=== PATIENT | male | born 1950 | race Two or more races ===

== ENCOUNTER 2022-06-12 19:37 | Inpatient (IN) | payer MEDICARE ==
[~2022-06-12] VITALS: Ht 165.1 cm; Wt 72.6 kg
--- NOTE | 2022-06-12 19:54 | NUR ---
[id number] FOR NO URINE OUTPUT VIA SUPRAPUBIC ALTMAN, LAST CHANGED 10 DAYS AGO. NO ALTMAN NOTED UPON TRIAGE. PT IS ALERT BUT CONFUSED, HX DEMENTIA. RR EVEN AND NONLABORED. CONNECTED TO MONITOR.
[2022-06-12 20:25] LABS: BASOPHILS % (AUTO) 0.7 % (0.0-2.0); EOSINOPHILS % (AUTO) 2.4 % (0.0-6.0); HEMATOCRIT 42 % (39-51); HEMOGLOBIN 13.7 g/dL (13.5-17.5); LYMPHOCYTES # (AUTO) 2.5 K/uL (0.8-4.8); MEAN CORPUSCULAR HGB CONC 33 g/dl (31.0-36.0); MEAN CORPUSCULAR VOLUME 92 fL (80-96); MONOCYTES # (AUTO) 0.5 K/uL (0.1-1.30); MONOCYTES % (AUTO) 7.5 % (2.0-12.0); NEUTROPHILS # (AUTO) 3.8 K/uL (1.8-8.9); NEUTROPHILS % (AUTO) 53.4 % (43.0-81.0); PLATELET COUNT (AUTO) 179 K/uL (150-450); RED BLOOD CELL COUNT(AUTO) 4.59 MIL/uL (4.5-6.0); WHITE BLOOD COUNT (AUTO) 7.1 K/uL (4.3-11.0)
[2022-06-12 20:41] LABS: CALCIUM, SERUM 8.5 mg/dL (8.5-10.1); CREATININE 2.9 mg/dL (0.6-1.3); POTASSIUM 3.6 mmol/L (3.5-5.1)
--- NOTE | 2022-06-12 21:00 | NUR ---
PATIENT ABLE TO URINATE ABOUT 10 ML, COLLECTED AND SENT TO LAB
--- NOTE | 2022-06-12 21:12 | NUR ---
DR STEVENS AT BEDSIDE FOR POSSIBLE CATH REINSERTION, BLADDER SCAN DONE REVEALED >300 ML.
--- NOTE | 2022-06-12 21:36 | NUR ---
IV LINE ESTABLISHED AT L HAND 22G
[2022-06-12 21:51] LABS: BILIRUBIN,URINE NEGATIVE (NEGATIVE); COLOR,URINE YELLOW (YELLOW); LEUKOCYTE ESTERASE ,URINE 1+ (NEGATIVE); NITRITE, URINE NEGATIVE (NEGATIVE); PROTEIN,URINE 1+ mg/dl (NEGATIVE); UGLUCOSE NEGATIVE (NEGATIVE); UROBILINOGEN,URINE 0.2 EU/dL (0.2)
[2022-06-12 21:58] LABS: RBC,URINE 81-100 /HPF (0-2)
[2022-06-12 21:59] LABS: BACTERIA,URINE 1+ /HPF (None Seen); SQUAMOUS EPITHELIAL CELL,UR 0-2 /HPF (None Seen)
[2022-06-12] MEDS ORDERED: CEFTRIAXONE 1 G in IV D5W 50 ML IV ONE (23:30)
[2022-06-12] MEDS ORDERED: Z GUARD REMEDY 4 OZ OINT TP PRN (23:30)
[2022-06-12] MEDS ORDERED: MAG HYDROX/AL HYDROX/SIMETH 30 ML UDC PO PRN (23:30)
[2022-06-12] MEDS ORDERED: HYDROCODONE/APAP 5/325MG TABLET PO PRN (23:30)
[2022-06-12] MEDS ORDERED: DEXTROSE 50%-WATER 50 ML DISP.SYRIN IV PRN (23:30)
[2022-06-12] MEDS ORDERED: MORPHINE SULFATE INJ 2 MG/ML DISP.SYRIN IV PRN (23:30)
[2022-06-12] MEDS ORDERED: MAGNESIUM HYDROXIDE 30 ML UDC PO PRN (23:30)
[2022-06-12] MEDS ORDERED: ONDANSETRON HCL/PF 4 MG/2 ML VIAL IVP PRN (23:30)
[2022-06-12] MEDS ORDERED: ZOLPIDEM TARTRATE 5 MG TABLET PO PRN (23:30)
[2022-06-12] MEDS ORDERED: IV NS 0.9% 1,000 ML IV ONE (23:30)
[2022-06-12] MEDS ORDERED: ACETAMINOPHEN 325 MG TABLET PO PRN (23:30)
[2022-06-13] MEDS ORDERED: CEFTRIAXONE 1 G VIAL ONE (00:38)
--- NOTE | 2022-06-13 02:25 | NUR ---
PT GOING TO 307-1
--- NOTE | 2022-06-13 02:35 | NUR ---
REPORT GIVEN TO SOUMYA HDZ. PT WILL BE TRANSFERRED TO [address] [place] [address].
--- NOTE | 2022-06-13 03:55 | NUR ---
PT SENT TO ROOM 307#1 IN STABLE CONDITION.
[2022-06-13 04:00] VITALS: BP 99/53
[2022-06-13 05:02] VITALS: BP 139/91
--- NOTE | 2022-06-13 05:10 | NUR ---
MS PLUMBER GASFITTER NOTE RECEIVED REPORT FROM TICKET SALES SUPERVISOR YUKO AND PATIENT WAS BROUGHT TO THE UNIT AT AROUND 0400, IN STABLE CONDITION. PER REPORT, PATIENT WAS ADMITTED D/T NO URINE OUTPUT IN SUPRAPUBIC CATHETER AND WAS FOUND OUT THAT IT WAS ACCIDENTALLY PULLED OUT. PATIENT WAS ALSO NOTED WITH UTI AND STARTED ON IV ATB IN ER. PATIENT WAS ACCOMPANIED BY 2 ER STAFFS AND DIRECTED TO RM. 307-1. ORIENTED TO NEW ENVIRONMENT AND EXPLAINED ADMISSION PROCESS WHICH INCLUDES SKIN ASSESSMENT WHICH THE PATIENT AGREES TO PARTICIPATE. SKIN IS INTACT AND PATIENT IS AMBULATORY WITH SUPERVISION. VITALS TAKEN AND FOLLOWS: BP- 139/91, P- 92, 02 SAT ON RA- 97%, R- 18, T-98.7. WITH IV ACCESS ON L HAND 22G AND STARTED WITH NS AT 75ML/HR ORDERED. SAFETY MEASURES IN PLACE. KEPT BED IN LOCKED AND IN LOW POSITION. SIDE RAILS UP X2. ADVISED TO USE THE CALL LIGHT WHEN IN NEED OF ASSISTANCE.
--- NOTE | 2022-06-13 06:30 | NUR ---
MS RN CLOSING NOTE PATIENT IN BED, WITH HOB ELEVATED, ASLEEP BUT EASY TO AROUSE AND RESPONSIVE. ALERT AND ORIENTED X3. ABLE TO COMMUNICATE NEEDS WITH THE STAFFS. AFEBRILE AND NOT IN ANY FORM OF ACUTE DISTRESS. BREATHING EVEN AND NON LABORED. LUNG SOUND CLEAR ON AUSCULTATION. NO C/O PAIN OR DISCOMFORT THROUGHOUT THE SHIFT. WITH IV ACCESS ON L HAND 22G RUNNING WITH NS AT 75ML/HR. SAFETY MEASURES IN PLACE. KEPT BED IN LOCKED AND IN LOW POSITION. SIDE RAILS UP X2. ADVISED TO USE THE CALL LIGHT WHEN IN NEED OF ASSISTANCE. ALL NURSING NEEDS ATTENDED. ENDORSED TO INCOMING SHIFT FOR CONTINUITY OF CARE.
[2022-06-13] MEDS: BLOOD SUGAR DIAGNOSTIC 1 EACH STRIP IN SCH ×4 (06:36→22:30)
[2022-06-13 07:13] LABS: BASOPHILS % (AUTO) 0.4 % (0.0-2.0); EOSINOPHILS % (AUTO) 0.3 % (0.0-6.0); HEMATOCRIT 46 % (39-51); HEMOGLOBIN 14.9 g/dL (13.5-17.5); LYMPHOCYTES # (AUTO) 1.8 K/uL (0.8-4.8); LYMPHOCYTES % (AUTO) 15.9 % (20.0-44.0); MEAN CORPUSCULAR HGB CONC 32 g/dl (31.0-36.0); MEAN CORPUSCULAR VOLUME 93 fL (80-96); MONOCYTES # (AUTO) 0.6 K/uL (0.1-1.30); MONOCYTES % (AUTO) 4.9 % (2.0-12.0); NEUTROPHILS % (AUTO) 78.5 % (43.0-81.0); PLATELET COUNT (AUTO) 182 K/uL (150-450); RED BLOOD CELL COUNT(AUTO) 4.97 MIL/uL (4.5-6.0); WHITE BLOOD COUNT (AUTO) 11.5 K/uL (4.3-11.0)
--- NOTE | 2022-06-13 07:20 | NUR ---
ms rn received on bed, awake,alert,oriented x 3,kuwaiti speaking not in any form of distress, respirations even and unlabored,no sob noted.came in w/ malfunction/dislodged suprapubic catheter, denies pain at this time,all needs attended.
[2022-06-13 07:24] LABS: CALCIUM, SERUM 8.9 mg/dL (8.5-10.1); CREATININE 2.7 mg/dL (0.6-1.3); MAGNESIUM 2.3 mg/dL (1.8-2.4); PHOSPHORUS 3.5 mg/dL (2.5-4.9); POTASSIUM 3.5 mmol/L (3.5-5.1)
[2022-06-13 07:49] LABS: THYROID STIMULATING HORMONE 6.356 uIU/mL (0.358-3.74)
[2022-06-13 08:00] VITALS: BP 153/93
--- NOTE | 2022-06-13 08:10 | NUR ---
ms rn refused breakfast at this time,all needs attended.
[2022-06-13] MEDS ORDERED: CEFTRIAXONE 1 G in IV D5W 50 ML IV SCH (09:00)
[2022-06-13] MEDS ORDERED: TOPI50TA24 PO (09:20)
[2022-06-13] MEDS ORDERED: LEVO75TA7 PO (09:20)
[2022-06-13] MEDS ORDERED: ATOR40TA PO (09:20)
[2022-06-13] MEDS ORDERED: CRAN400C PO (09:20)
[2022-06-13] MEDS ORDERED: METO100T14 PO (09:20)
[2022-06-13] MEDS ORDERED: AMLO-213 PO (09:20)
[2022-06-13] MEDS ORDERED: MELA5TAB PO (09:20)
[2022-06-13] MEDS ORDERED: QUET200T PO (09:20)
--- NOTE | 2022-06-13 09:50 | NUR ---
ms rn dr. casas, urologist, inserted suprpubic catheter, draining well, connected to sexton bag.
--- NOTE | 2022-06-13 12:30 | NUR ---
ms rn urine specimen sent for culture,all needs attended.
[2022-06-13 16:00] VITALS: BP 153/99
--- NOTE | 2022-06-13 17:00 | NUR ---
ms rn daughter at bedside, updated w/ plan of care. texted dr. bryant to reconcile meds.
[2022-06-13 18:00] VITALS: BP 158/89
[2022-06-13] MEDS: IV NS 0.9% 1,000 ML IV SCH (18:30)
[2022-06-13] MEDS: INSULIN REGULAR, HUMAN 100 UNIT/ML 3 ML VIAL SQ PRN (18:31)
--- NOTE | 2022-06-13 19:30 | NUR ---
MS RN OPENING NOTE RECEIVED PATIENT IN BED; AWAKE, ALERT AND ORIENTED X 3. [place]STA RICAN SPEAKING. ON ROOM AIR; TOLERATING WELL. BREATHING EVEN AND NONLABORED. NOT IN ANY FORM OF RESPIRATORY OR CARDIAC DISTRESS NOTED. DENIES ANY PAIN OR DISCOMFORT AT THIS TIME. WITH IV ACCESS ON LEFT HAND 22G; PATENT AND INTACT INFUSING WITH NS 1L REGULATED @ 75 ML/HR; FLUSHES WELL. WITH SUPRAPUBIC CATHETER IN PLACE DRAINING BY GRAVITY WITH BLOODY URINE OUTPUT. SAFETY PRECAUTIONS IMPLEMENTED: CALL LIGHT AND TABLE WITHIN REACH, SIDE RAILS UP X 2, BED IN LOWEST LOCKED POSITION. WILL CONTINUE PLAN OF CARE.
[2022-06-13 20:00] VITALS: BP 124/70
[2022-06-13] MEDS: CEFTRIAXONE 1 G in IV D5W 50 ML IV SCH (22:22)
[2022-06-14 05:47] LABS: BASOPHILS % (AUTO) 0.5 % (0.0-2.0); EOSINOPHILS % (AUTO) 0.7 % (0.0-6.0); HEMATOCRIT 45 % (39-51); HEMOGLOBIN 14.8 g/dL (13.5-17.5); LYMPHOCYTES # (AUTO) 2.4 K/uL (0.8-4.8); LYMPHOCYTES % (AUTO) 29.8 % (20.0-44.0); MEAN CORPUSCULAR HGB CONC 33 g/dl (31.0-36.0); MEAN CORPUSCULAR VOLUME 91 fL (80-96); MONOCYTES # (AUTO) 0.8 K/uL (0.1-1.30); MONOCYTES % (AUTO) 10.2 % (2.0-12.0); NEUTROPHILS # (AUTO) 4.8 K/uL (1.8-8.9); NEUTROPHILS % (AUTO) 58.8 % (43.0-81.0); PLATELET COUNT (AUTO) 187 K/uL (150-450); RED BLOOD CELL COUNT(AUTO) 4.92 MIL/uL (4.5-6.0); WHITE BLOOD COUNT (AUTO) 8.2 K/uL (4.3-11.0)
[2022-06-14 06:05] LABS: CALCIUM, SERUM 8.9 mg/dL (8.5-10.1); CREATININE 2.4 mg/dL (0.6-1.3); PHOSPHORUS 3.3 mg/dL (2.5-4.9); POTASSIUM 3.3 mmol/L (3.5-5.1)
[2022-06-14] MEDS: IV NS 0.9% 1,000 ML IV SCH ×2 (06:34→20:33)
[2022-06-14] MEDS: BLOOD SUGAR DIAGNOSTIC 1 EACH STRIP IN SCH ×4 (06:39→21:58)
--- NOTE | 2022-06-14 07:00 | NUR ---
MS RN CLOSING NOTE PATIENT IN BED; AWAKE, A/O X 3. STABLE ON ROOM AIR. IN NO ACUTE DISTRESS. NO C/O ANY PAIN OR DISCOMFORT. WITH IV ACCESS ON LEFT HAND 22G; PATENT AND INTACT INFUSING WITH NS 1L REGULATED @ 75 ML/HR; FLUSHES WELL. WITH SUPRAPUBIC CATHETER IN PLACE DRAINING BY GRAVITY WITH BLOODY SAFETY PRECAUTIONS MAINTAINED: CALL LIGHT AND TABLE WITHIN REACH, SIDE RAILS UP X 2, BED IN LOWEST LOCKED POSITION. ENDORSED TO SOUMYA CONNELL FOR JUAN.
--- NOTE | 2022-06-14 07:05 | NUR ---
MS RN OPENING NOTES RECEIVED PATIENT RESTING IN BED, A/Ox3, DANISH SPEAKING, ABLE TO MAKE NEEDS KNOWN. ON ROOM AIR. NO S/S OF RESPIRATORY DISTRESS OR DISCOMFORT. PATIENT IV ACCESS L HAND #20G RUNNING NS @75ML/HR. INTACT AND PATENT. NO S/S OF INFILTRATION. PATIENT ON AMBULATORY, HAS SUPRAPUBIC CATHETER DRAINING YELLOW URINE AT THIS TIME. SKIN INTACT. SAFETY MEASURES IN PLACE: BED LOCKED AND IN LOWEST POSITION, SIDE RAILS UP x2, HOB ELEVATED, CALL LIGHT WITHIN REACH. WILL CONTINUE TO MONITOR.
[2022-06-14 08:00] VITALS: BP 133/89
[2022-06-14] MEDS ORDERED: HOME MED MISCELLANEOUS XX SCH (10:00)
[2022-06-14] MEDS: LEVOTHYROXINE SODIUM 75 MCG TABLET PO SCH (10:20)
[2022-06-14] MEDS: QUETIAPINE FUMARATE 25 MG TABLET PO SCH (10:21)
[2022-06-14] MEDS: TOPIRAMATE 25 MG TABLET PO SCH ×2 (10:21→20:34)
[2022-06-14] MEDS: METOPROLOL TARTRATE 50 MG TABLET PO SCH ×2 (10:21→20:34)
[2022-06-14] MEDS: AMLODIPINE BESYLATE 10 MG TABLET PO SCH (10:21)
[2022-06-14] MEDS ORDERED: POTASSIUM CHLORIDE 20 MEQ TAB.PRT.SR PO SCH (10:30)
[2022-06-14] MEDS: INSULIN REGULAR, HUMAN 100 UNIT/ML 3 ML VIAL SQ PRN ×2 (11:37→22:00)
--- NOTE | 2022-06-14 13:00 | NUR ---
RN NOTES PATIENT RESTING IN BED, ATE SOME OF HIS LUNCH, WILL CONTINUE TO MONITOR. NO PAIN OR DISCOMFORT NOTED.
[2022-06-14 16:00] VITALS: BP 150/92
--- NOTE | 2022-06-14 18:41 | NUR ---
MS RN CLOSING NOTES PATIENT SLEEPING IN BED, A/Ox3, VIETNAMESE SPEAKING, ABLE TO MAKE NEEDS KNOWN. STABLE ON ROOM AIR. NO S/S OF RESPIRATORY DISTRESS OR DISCOMFORT. PATIENT IV ACCESS L HAND #20G RUNNING NS @75ML/HR. INTACT AND PATENT. NO S/S OF INFILTRATION. PATIENT ON AMBULATORY, HAS SUPRAPUBIC CATHETER DRAINING YELLOW URINE AT THIS TIME. SKIN INTACT. SAFETY MEASURES IN PLACE: BED LOCKED AND IN LOWEST POSITION, SIDE RAILS UP x2, HOB ELEVATED, CALL LIGHT WITHIN REACH. WILL ENDORSE TO NEXT SHIFT ANY JUAN.
--- NOTE | 2022-06-14 19:00 | NUR ---
MS DARYN INITIAL NOTES RECEIVED PT IN BED ON SEMI FOWLERS POSITION WITH SIDE RAILS X3 UP AND BE DIN LOW AND CLOCK IN POSITION . ASLEEP BUT EASILY AROUSE TO VOICE. PATIENT AMHARIC SPEAKING , ALERT WITH SOME DISORIENTED WHERE. HE AT. RE-ORIENT WHERE HE IS AND HOW TO USED THE CALL LIGHT SYSTEM. HEPLOCK ON HIS LEFT HAND PATENT AND INTACT. HE ALSO WITH SUPRA PUBIC CATHETER WITH CLEAR YELLOW OUTPUT NOTED. ON ROOM AIR , NO SIGNS OF ANY DISTRESS OR ANY DISCOMFORT NOTED. KEPT HIM WARM AND COMFORTABLE AT ALL TIMES. PLACE CALL LIGHT AT REACH. WILL CONTINUE MONITORING.
[2022-06-14 20:00] VITALS: BP 155/105
[2022-06-14] MEDS: ATORVASTATIN 40 MG TABLET PO SCH (22:02)
[2022-06-14] MEDS: QUETIAPINE FUMARATE 100 MG TABLET PO SCH (22:03)
[2022-06-14] MEDS: CEFTRIAXONE 1 G in IV D5W 50 ML IV SCH (22:09)
--- NOTE | 2022-06-14 22:29 | NUR ---
ms analisa notes Pt blood sugar checked 123. no insulin given, no signs of hypo/glycemia noted. Pt still on IVF Ns at 75ml/hr. will continue monitoring.
--- NOTE | 2022-06-15 | NUR ---
MS HOOP MAKER HELPER MACHINE NOTES PT SLEEPING AT THIS TIME, BREATHING EVEN AND NON-LABORED NOT IN ANY ACUTE DISTRESS NOTED. IVF NS AT 75ML/HR STILL INFUSING ON HIS LEFT HAND , INTACT AND PATENT. KEPT HIM WARM AND COMFORTABLE AT ALL TIMES. WILL CONTINUE MONITORING.
--- NOTE | 2022-06-15 03:00 | NUR ---
MS LEAN CONSULTANT NOTES PT WOKE UP AND HE TRIED TO GET UP WITHOUT CALLING THE NURSE. HE SEEMS DISORIENTED , HE STATES"A LOT OF RACCOON AND MICE IN THE WALL " CALLED ONE OF THE NURSE SPEAK LITHUANIAN TO TRANSLATE BECAUSE PT ONLY SPEAK LITHUANIAN . RE-ORIENTED WHERE HE AT AND TOLD HIM THAT THER IS NO RACCOON AND MICE IN THE HOSPITAL. PATIENT CALMED AND HE STARTED BACK TO SLEEP.WILL CONTINUE MONITORING.
[2022-06-15] MEDS: INSULIN REGULAR, HUMAN 100 UNIT/ML 3 ML VIAL SQ PRN ×2 (07:06→21:27)
[2022-06-15] MEDS: BLOOD SUGAR DIAGNOSTIC 1 EACH STRIP IN SCH ×4 (07:06→21:27)
--- NOTE | 2022-06-15 07:16 | NUR ---
MS RN OPENING NOTES RECEIVED PATIENT SLEEPING IN BED BUT WAKES UP EASILY, PATIENT IS A/Ox2, S[place] LANK[place] SPEAKING, ABLE TO MAKE NEEDS KNOWN. ON ROOM AIR WITH EQUAL AND UNLABORED BREATHING WITH NO SIGN OF RESPIRATORY DISTRESS NOTED. PATIENT IV ACCESS L HAND #22G RUNNING NS @75ML/HR. INFUSING WELL. HAS SUPRAPUBIC CATHETER DRAINING YELLOW URINE AT THIS TIME. SKIN INTACT. SAFETY MEASURES IN PLACE: BED LOCKED AND IN LOWEST POSITION, SIDE RAILS UP x2, HOB ELEVATED, CALL LIGHT WITHIN REACH. WILL CONTINUE WITH PLAN OF CARE.
[2022-06-15 07:38] LABS: BASOPHILS % (AUTO) 0.6 % (0.0-2.0); CALCIUM, SERUM 8.6 mg/dL (8.5-10.1); CREATININE 2.2 mg/dL (0.6-1.3); EOSINOPHILS % (AUTO) 2.2 % (0.0-6.0); HEMATOCRIT 39 % (39-51); HEMOGLOBIN 12.9 g/dL (13.5-17.5); LYMPHOCYTES # (AUTO) 2.1 K/uL (0.8-4.8); LYMPHOCYTES % (AUTO) 34.6 % (20.0-44.0); MEAN CORPUSCULAR HGB CONC 33 g/dl (31.0-36.0); MEAN CORPUSCULAR VOLUME 92 fL (80-96); MONOCYTES # (AUTO) 0.6 K/uL (0.1-1.30); MONOCYTES % (AUTO) 9.5 % (2.0-12.0); NEUTROPHILS # (AUTO) 3.2 K/uL (1.8-8.9); NEUTROPHILS % (AUTO) 53.1 % (43.0-81.0); PLATELET COUNT (AUTO) 168 K/uL (150-450); POTASSIUM 3.4 mmol/L (3.5-5.1); RED BLOOD CELL COUNT(AUTO) 4.29 MIL/uL (4.5-6.0)
--- NOTE | 2022-06-15 07:38 | NUR ---
ms regulatory affairs assistant closing notes pt awake and alert watching TV , no signs of any discomfort or any distress noted. all due meds given and all needs met. IVF still infusing. Endorsed to am nurse for continuity of care. bed alarm set for pt safety. place call light at reach.
[2022-06-15 08:10] VITALS: BP 143/90
[2022-06-15] MEDS: AMLODIPINE BESYLATE 10 MG TABLET PO SCH (08:57)
[2022-06-15] MEDS: LEVOTHYROXINE SODIUM 75 MCG TABLET PO SCH (08:58)
[2022-06-15] MEDS: METOPROLOL TARTRATE 50 MG TABLET PO SCH ×2 (08:58→21:29)
[2022-06-15] MEDS: QUETIAPINE FUMARATE 25 MG TABLET PO SCH (08:58)
[2022-06-15] MEDS: TOPIRAMATE 25 MG TABLET PO SCH ×2 (08:58→21:29)
[2022-06-15] MEDS: IV NS 0.9% 1,000 ML IV SCH (09:30)
[2022-06-15] MEDS ORDERED: POTASSIUM CHLORIDE 20 MEQ TAB.PRT.SR PO SCH (12:00)
--- NOTE | 2022-06-15 13:00 | NUR ---
MS RN NOTE SEEN BY HOSPITALIST DEEDEE. IN STABLE CONDITION.
[2022-06-15] MEDS: IV NS 0.9% 1,000 ML IV PRN (14:01)
[2022-06-15 16:11] VITALS: BP 140/90
--- NOTE | 2022-06-15 18:54 | NUR ---
MS RN CLOSING NOTES PATIENT SLEEPING IN BED BUT WAKES UP EASILY, PATIENT IS A/Ox2, PERSIAN SPEAKING, ABLE TO MAKE NEEDS KNOWN. ON ROOM AIR WITH EQUAL AND UNLABORED BREATHING WITH NO SIGN OF RESPIRATORY DISTRESS NOTED. PATIENT IV ACCESS L HAND #22G RUNNING NS @75ML/HR. INFUSING WELL. HAS SUPRAPUBIC CATHETER DRAINING YELLOW URINE AT THIS TIME. SKIN INTACT. SAFETY MEASURES IN PLACE: BED LOCKED AND IN LOWEST POSITION, SIDE RAILS UP x2, HOB ELEVATED, CALL LIGHT WITHIN REACH. WILL ENDORSE TO NEXT SHIFT FOR CONTINUITY OF CARE.
--- NOTE | 2022-06-15 19:53 | NUR ---
RN OPENING NOTE PATIENT ASLEEP IN BED. A/OX2. NO S/S OF DISTRESS, BREATHING WITHOUT DIFFICULTY ON ROOM AIR. L-HAND #22 INTACT AND PATENT W/ NS 75ML/HR. SAFETY MEASURES IN PLACE: BED LOCKED IN PLACE & AT LOWEST POSITION, RAILS UPX2, CALL [place] WITHIN REACH. WILL CONTINUE TO MONITOR PATIENT.
[2022-06-15 20:00] VITALS: BP 142/93
[2022-06-15] MEDS: QUETIAPINE FUMARATE 100 MG TABLET PO SCH (21:28)
[2022-06-15] MEDS: ATORVASTATIN 40 MG TABLET PO SCH (21:29)
[2022-06-15] MEDS: CEFTRIAXONE 1 G in IV D5W 50 ML IV SCH (22:56)
[2022-06-16] MEDS ORDERED: LORAZEPAM 1 MG TABLET PO PRN (00:30)
[2022-06-16] MEDS: BLOOD SUGAR DIAGNOSTIC 1 EACH STRIP IN SCH ×2 (06:34→11:35)
[2022-06-16] MEDS: INSULIN REGULAR, HUMAN 100 UNIT/ML 3 ML VIAL SQ PRN ×2 (06:34→11:41)
[2022-06-16 06:41] LABS: CALCIUM, SERUM 8.8 mg/dL (8.5-10.1); CREATININE 2.3 mg/dL (0.6-1.3); POTASSIUM 3.8 mmol/L (3.5-5.1)
[2022-06-16] MEDS: IV NS 0.9% 1,000 ML IV PRN (06:50)
--- NOTE | 2022-06-16 07:38 | NUR ---
MS RN OPENING NOTES: RECEIVED PATIENT SLEEPING IN BED, EASILY ROUSED, A/Ox 1-2, UGANDAN SPEAKING. ON ROOM AIR WITH NO S/S OF RESPIRATORY DISTRESS OR DISCOMFORT NOTED. IV ACCESS R AC #20, NO FLUIDS RUNNING AT THIS . INTACT AND PATENT. NO S/S OF INFILTRATION. PATIENT AMBULATORY, HAS SUPRAPUBIC CATHETER DRAINING YELLOW URINE AT THIS TIME. SKIN INTACT. SAFETY MEASURES IN PLACE: BED LOCKED AND IN LOWEST POSITION, SIDE RAILS UP x2, HOB ELEVATED, CALL LIGHT WITHIN REACH. WILL CONT WITH PLAN OF CARE DURING SHIFT.
[2022-06-16 08:00] VITALS: BP_SYST 147; BP_SYST 159; BP_DIAS 89; BP_DIAS 94
[2022-06-16] MEDS: METOPROLOL TARTRATE 50 MG TABLET PO SCH (08:12)
[2022-06-16 08:13] VITALS: BP 159/89
[2022-06-16] MEDS: QUETIAPINE FUMARATE 25 MG TABLET PO SCH (08:13)
[2022-06-16] MEDS: LEVOTHYROXINE SODIUM 75 MCG TABLET PO SCH (08:13)
[2022-06-16] MEDS: AMLODIPINE BESYLATE 10 MG TABLET PO SCH (08:13)
[2022-06-16] MEDS: TOPIRAMATE 25 MG TABLET PO SCH (08:13)
[2022-06-16] MEDS ORDERED: CEFT1FRO2 IV (11:53)
[2022-06-16] MEDS ORDERED: CIPR500S3 PO (14:52)
[2022-06-16] MEDS ORDERED: CIPR500T5 PO ×4 (14:53→14:58)
[2022-06-16] MEDS ORDERED: CIPR-262 PO (14:59)
--- NOTE | 2022-06-16 16:00 | NUR ---
MS RN DC NOTES: PT CLINICALLY STABLE FOR DISCHARGE. VITALS WNL, NO S/S OF SOB ON RA. REPORT GIVEN TO WARREN FROM [facility] BY PHONE. IV ACCESS AND ID BAND REMOVED. DC INSTRUCTIONS, BELONGINGS LIST AND NEW PRESCRIPTION DISCUSSED WITH PT AND DAUGHTER ZAIRA AT BEDSIDE, DOCUMENTS SIGNED. RN CALLED [facility] WITH CHANGE OF PRESCRIPTION. PT LEFT UNIT VIA WHEELCHAIR ESCORTED TO [facility] BY RN. LEFT HOSPITAL VIA PRIVATE CAR WITH ZAIRA.
[2022-06-17] MEDS ORDERED: CIPROFLOXACIN HCL 500 MG TABLET PO SCH (09:00)
== END 2022-06-16 15:55 | disposition hospice, home (50) | DRG 698 ==
LOC: ER 19:47 → EDBD 19:47 → MED 06-13 02:26
PROVIDERS: ADMIT Nurse Practitioner Acute Care; ATTEND Internal Medicine
PROC: 0T2BX0Z Change Drainage Device in Bladder, External Approach (ICD-10-PCS; principal; 2022-06-13)
DX: T83.010A Breakdown (mechanical) of cystostomy catheter, initial encounter (principal); G93.41 Metabolic encephalopathy; N17.0 Acute kidney failure with tubular necrosis; N39.0 Urinary tract infection, site not specified; N13.8 Other obstructive and reflux uropathy; Z20.822 Contact with and (suspected) exposure to COVID-19; Y92.129 Unspecified place in nursing home as the place of occurrence of the external cause; Y73.8 Miscellaneous gastroenterology and urology devices associated with adverse incidents, not elsewhere classified; I12.9 Hypertensive chronic kidney disease with stage 1 through stage 4 chronic kidney disease, or unspecified chronic kidney disease; N18.9 Chronic kidney disease, unspecified; N99.512 Cystostomy malfunction; E11.22 Type 2 diabetes mellitus with diabetic chronic kidney disease; B96.89 Other specified bacterial agents as the cause of diseases classified elsewhere; E03.9 Hypothyroidism, unspecified; E87.6 Hypokalemia; F20.9 Schizophrenia, unspecified; F31.9 Bipolar disorder, unspecified; Z86.73 Personal history of transient ischemic attack (TIA), and cerebral infarction without residual deficits; N40.1 Benign prostatic hyperplasia with lower urinary tract symptoms; F01.50 Vascular dementia, unspecified severity, without behavioral disturbance, psychotic disturbance, mood disturbance, and anxiety
CPT/HCPCS: 36415; 71045-TC; 76770-TC; 76870-TC; 80048-TC; 80061-TC; 81001; 82962-TC; 83735-TC; 84100-TC; 84443-TC; 85025-TC; 87081-TC; 87086-TC; C9803; G0378; J0696; J1815; J7030; J7060

== ENCOUNTER 2023-07-16 02:15 | Emergency (ER) | payer MEDICARE, OTHER ==
[~2023-07-16] VITALS: Ht 162.6 cm; Wt 72.6 kg
[~2023-07-16 02:15] MED LIST: AMLO-213 PO; ATOR40TA PO; CIPR-262 PO; CIPR500S3 PO; CIPR500T5 PO; CRAN400C PO; LEVO75TA7 PO; MELA5TAB PO; METO100T14 PO; QUET200T PO; TOPI50TA24 PO
[2023-07-16 07:01] LABS: BASOPHILS % (AUTO) 0.6 % (0.0-2.0); EOSINOPHILS # (AUTO) 0.1 K/uL (0.0-0.7); EOSINOPHILS % (AUTO) 1.9 % (0.0-6.0); HEMATOCRIT 37 % (39-51); HEMOGLOBIN 12.3 g/dL (13.5-17.5); LYMPHOCYTES # (AUTO) 1.5 K/uL (0.8-4.8); LYMPHOCYTES % (AUTO) 20.1 % (20.0-44.0); MEAN CORPUSCULAR HEMOGLOBIN 31 PG (26.0-33.0); MEAN CORPUSCULAR HGB CONC 33 g/dl (31.0-36.0); MEAN CORPUSCULAR VOLUME 93 fL (80-96); MONOCYTES # (AUTO) 0.4 K/uL (0.1-1.30); MONOCYTES % (AUTO) 5.2 % (2.0-12.0); NEUTROPHILS # (AUTO) 5.4 K/uL (1.8-8.9); NEUTROPHILS % (AUTO) 72.2 % (43.0-81.0); PLATELET COUNT (AUTO) 180 K/uL (150-450); RED BLOOD CELL COUNT(AUTO) 4.02 MIL/uL (4.5-6.0); RED CELL DISTRIBUTION WIDTH 14.5 % (11.5-15.0); WHITE BLOOD COUNT (AUTO) 7.4 K/uL (4.3-11.0)
[2023-07-16 07:03] LABS: INR 0.96 (0.91-1.10); PARTIAL THROMBOPLASTIN TIME 28.1 SEC (24.3-34.3); PROTHROMBIN TIME 10.2 SECS (9.2-11.1)
[2023-07-16 07:08] LABS: CALCIUM, SERUM 8.8 mg/dL (8.5-10.1); CARBON DIOXIDE 18 mmol/L (21-32); CHLORIDE 110 mmol/L (98-107); CREATININE 2.5 mg/dL (0.6-1.3); GLUCOSE 133 mg/dL (74-106); POTASSIUM 4.1 mmol/L (3.5-5.1); SODIUM SERUM 140 mmol/L (136-145); UREA NITROGEN, BLOOD 22 mg/dL (7-18)
[2023-07-16] MEDS ORDERED: CEFD300C3 PO (10:01)
[2023-07-16 11:57] VITALS: BP 134/78; TEMP 98; O2SAT 100
== END 2023-07-16 11:59 ==
LOC: ER 02:28
DX: T83.021A Displacement of indwelling urethral catheter, initial encounter (principal); F03.90 Unspecified dementia, unspecified severity, without behavioral disturbance, psychotic disturbance, mood disturbance, and anxiety; I10 Essential (primary) hypertension; E11.9 Type 2 diabetes mellitus without complications; Z88.8 Allergy status to other drugs, medicaments and biological substances; Z79.899 Other long term (current) drug therapy
CPT/HCPCS: 36415; 51705; 71045; 80048; 85025; 85730; 93005; 99284; A6403

== ENCOUNTER 2023-09-29 21:00 | Emergency (ER) | payer MEDICARE, OTHER ==
[~2023-09-29] VITALS: Ht 170.2 cm; Wt 81.2 kg
[~2023-09-29 21:00] MED LIST changes: +CEFD300C3 PO
[2023-09-29 21:16] VITALS: BP 142/70; TEMP 98.4; O2SAT 97
[2023-09-29 22:46] LABS: BASOPHILS # (AUTO) 0.1 K/uL (0.0-0.2); BASOPHILS % (AUTO) 1.6 % (0.0-2.0); EOSINOPHILS # (AUTO) 0.2 K/uL (0.0-0.7); EOSINOPHILS % (AUTO) 3.5 % (0.0-6.0); HEMATOCRIT 31 % (39-51); HEMOGLOBIN 10.5 g/dL (13.5-17.5); LYMPHOCYTES # (AUTO) 2.1 K/uL (0.8-4.8); LYMPHOCYTES % (AUTO) 41.1 % (20.0-44.0); MEAN CORPUSCULAR HEMOGLOBIN 31 PG (26.0-33.0); MEAN CORPUSCULAR HGB CONC 34 g/dl (31.0-36.0); MEAN CORPUSCULAR VOLUME 92 fL (80-96); MONOCYTES # (AUTO) 0.5 K/uL (0.1-1.30); MONOCYTES % (AUTO) 10.6 % (2.0-12.0); NEUTROPHILS # (AUTO) 2.2 K/uL (1.8-8.9); NEUTROPHILS % (AUTO) 43.2 % (43.0-81.0); PLATELET COUNT (AUTO) 247 K/uL (150-450); RED BLOOD CELL COUNT(AUTO) 3.36 MIL/uL (4.5-6.0); RED CELL DISTRIBUTION WIDTH 14.3 % (11.5-15.0); WHITE BLOOD COUNT (AUTO) 5.1 K/uL (4.3-11.0)
[2023-09-29 22:51] LABS: BILIRUBIN,URINE NEGATIVE (NEGATIVE); BLOOD, URINE 1+ Ery/uL (NEGATIVE); COLOR,URINE YELLOW (YELLOW); KETONES,URINE NEGATIVE (NEGATIVE); LEUKOCYTE ESTERASE ,URINE 2+ (NEGATIVE); NITRITE, URINE NEGATIVE (NEGATIVE); PROTEIN,URINE 1+ mg/dl (NEGATIVE); UGLUCOSE NEGATIVE (NEGATIVE); UROBILINOGEN,URINE 0.2 EU/dL (0.2)
[2023-09-29 22:53] LABS: APPEARANCE,URINE HAZY (CLEAR)
[2023-09-29 23:03] LABS: CALCIUM, SERUM 8.4 mg/dL (8.5-10.1); CARBON DIOXIDE 21 mmol/L (21-32); CHLORIDE 109 mmol/L (98-107); CREATININE 2.9 mg/dL (0.6-1.3); GLUCOSE 114 mg/dL (74-106); SODIUM SERUM 141 mmol/L (136-145); UREA NITROGEN, BLOOD 26 mg/dL (7-18)
[2023-09-29 23:13] LABS: ALANINE AMINOTRANSFERASE 11 U/L (12-78); ALBUMIN 2.8 g/dL (3.4-5.0); ALKALINE PHOSPHATASE 101 U/L (46-116); ASPARTATE AMINOTRANSFERASE 7 U/L (15-37); BILIRUBIN,TOTAL 0.2 mg/dL (0.2-1.0); TOTAL PROTEIN, SERUM 6.8 g/dL (6.4-8.2)
[2023-09-29] MEDS ORDERED: NITR100C6 PO (23:22)
[2023-09-29 23:27] LABS: RBC,URINE 20 /HPF (0-2); WBC,URINE TOO NUMEROUS TO COUN /HPF (0-3)
[2023-09-29 23:28] LABS: ADD URINE CULTURE YES; BACTERIA,URINE Moderate /HPF (None Seen); SQUAMOUS EPITHELIAL CELL,UR None Seen /HPF (None Seen)
== END 2023-09-30 00:40 ==
LOC: ER 21:21
DX: T83.091A Other mechanical complication of indwelling urethral catheter, initial encounter (principal); N39.0 Urinary tract infection, site not specified; F03.90 Unspecified dementia, unspecified severity, without behavioral disturbance, psychotic disturbance, mood disturbance, and anxiety; I10 Essential (primary) hypertension; E11.9 Type 2 diabetes mellitus without complications; Z88.8 Allergy status to other drugs, medicaments and biological substances; Z79.899 Other long term (current) drug therapy
CPT/HCPCS: 36415; 80053-TC; 81001; 85025-TC